=== PATIENT | female | born 1935 | race African-American/Black ===

== ENCOUNTER 2017-03-27 19:20 | Emergency (ER) | payer MEDICAID, OTHER ==
[~2017-03-27] VITALS: Ht 160 cm; Wt 85.0 kg
[2017-03-27 21:14] LABS: BASOPHILS % 0.6 % (0.0-2.0); EOSINOPHILS % 2.6 % (0.0-5.0); HEMATOCRIT. 39.2 % (36.0-48.0); HEMOGLOBIN. 12.7 g/dL (12.0-16.0); LYMPHOCYTES % 13.5 % (20.0-50.0); MEAN CORPUSCULAR HEMOGLOBIN 30.7 pg (28.0-32.0); MEAN CORPUSCULAR VOLUME 95.2 fL (81.0-99.0); MEAN PLATELET VOLUME 8.9 fl (7.4-10.4); MONOCYTES % 8.1 % (2.0-8.0); NEUTROPHILS % 75.2 % (40.0-76.0); PLATELET 162 x1000/uL (130-400); RED BLOOD CELL COUNT 4.12 mill/uL (4.2-5.4); RED CELL DISTRIBUTION WIDTH 15.1 % (11.6-14.6)
[2017-03-27 21:16] LABS: INR 1.1; PROTHROMBIN TIME 11.4 sec
[2017-03-27 21:22] LABS: CARBON DIOXIDE 33 mEq/L (21-32); CHLORIDE 98 mEq/L (98-107)
[2017-03-27 21:23] LABS: TROPONIN I < 0.02 ng/mL (0.00-0.04)
[2017-03-27] MEDS ORDERED: METHYLPREDNISOLONE SOD SUCC 125 MG/2 ML VIAL IV ONE (23:00)
[2017-03-28 00:01] VITALS: BP 166/89
== END 2017-03-28 05:54 | disposition home or self-care (01) ==
LOC: ER 20:44
DX: R05 Cough (principal); I50.9 Heart failure, unspecified; J44.9 Chronic obstructive pulmonary disease, unspecified; E11.9 Type 2 diabetes mellitus without complications; Z88.0 Allergy status to penicillin; Z91.010 Allergy to peanuts; Z86.73 Personal history of transient ischemic attack (TIA), and cerebral infarction without residual deficits; Z90.49 Acquired absence of other specified parts of digestive tract; Z90.710 Acquired absence of both cervix and uterus; F17.211 Nicotine dependence, cigarettes, in remission; I10 Essential (primary) hypertension
CPT/HCPCS: 36415; 71010; 80053; 83880; 84484; 85025; 85610; 93005; 96374; 99285; J2930

== ENCOUNTER 2017-04-12 18:22 | Inpatient (IN) | payer OTHER ==
[~2017-04-12] VITALS: Ht 160 cm; Wt 84.1 kg
[~2017-04-12 18:22] MED LIST: IOHEXOL-350 100 ML BOTTLE ONE; SODIUM CHLORIDE 0.9% 10ML VIAL ONE
[2017-04-12] MEDS ORDERED: ALBUTEROL (0.083%) 2.5MG/3ML NEB HHN STA (18:57)
[2017-04-12] MEDS ORDERED: IPRATROPIUM BROMIDE (0.02%) 0.5MG/2.5ML NEB HHN STA (18:57)
[2017-04-12] MEDS ORDERED: METHYLPREDNISOLONE SOD SUCC 125 MG/2 ML VIAL IV STA (18:57)
[2017-04-12 19:29] LABS: BASOPHILS % 0.3 % (0.0-2.0); EOSINOPHILS % 1.5 % (0.0-5.0); HEMATOCRIT. 39.7 % (36.0-48.0); HEMOGLOBIN. 13.1 g/dL (12.0-16.0); LYMPHOCYTES % 7.4 % (20.0-50.0); MEAN CORPUSCULAR VOLUME 94.2 fL (81.0-99.0); MEAN PLATELET VOLUME 8.9 fl (7.4-10.4); MONOCYTES % 5.5 % (2.0-8.0); NEUTROPHILS % 85.3 % (40.0-76.0); PLATELET 166 x1000/uL (130-400); RED BLOOD CELL COUNT 4.21 mill/uL (4.2-5.4); RED CELL DISTRIBUTION WIDTH 14.9 % (11.6-14.6)
[2017-04-12 19:34] LABS: CHLORIDE 97 mEq/L (98-107)
[2017-04-12 19:36] LABS: PROTHROMBIN TIME 10.7 sec
[2017-04-12 19:39] LABS: CARBON DIOXIDE 36 mEq/L (21-32)
[2017-04-12 19:44] LABS: TROPONIN I < 0.02 ng/mL (0.00-0.04)
[2017-04-12 19:55] LABS: BG BASE EXCESS 2.6 mmol/L (-2.0-2.0); BG CARBOXYHEMOGLOBIN 0.8 % (0.5-1.5); BG DEOXYHEMOGLOBIN 3.2 % (0.0-5.0); BG FRACTION INSPIRED OXYGEN 28; BG METHEMOGLOBIN 0.5 % (0.0-1.5); BG OXYGEN SATURATION 96.8 % (92.0-98.5); BG OXYHEMOGLOBIN 95.5 % (94.0-97.0); BG PH 7.372 (7.350-7.450); BG PO2 90.3 mmHg (75.0-100.0); BG SAMPLE SITE RIGHT RADIAL; BG VENT MODE NASAL CANNULA
[2017-04-12 23:49] VITALS: BP 153/74
[2017-04-13] VITALS (15 sets, daily range): BP systolic 110–151; BP diastolic 37–81
[2017-04-13] MEDS ORDERED: CLONIDINE 0.1MG TABLET PO PRN
[2017-04-13] MEDS ORDERED: DOCUSATE SODIUM 100MG CAPSULE PO PRN
[2017-04-13] MEDS ORDERED: HYDROCODONE/ACETAMINOPHEN 5/325MG TABLET PO PRN
[2017-04-13] MEDS ORDERED: ONDANSETRON HCL 4MG/2ML VIAL IV PRN
[2017-04-13] MEDS ORDERED: SODIUM POLYSTYRENE SULFONATE 15 G/60 ML BOT PO NR (01:30)
[2017-04-13] MEDS ORDERED: FURO20TA4 PO (01:56)
[2017-04-13] MEDS ORDERED: CARV3.1242 PO (01:56)
[2017-04-13] MEDS ORDERED: ALBU2SYR PO (01:56)
[2017-04-13] MEDS ORDERED: LEVEMIR SQ (01:56)
[2017-04-13] MEDS ORDERED: HUMALOG SUBCUT (01:59)
[2017-04-13] MEDS ORDERED: LEVOFLOXACIN 500MG PREMIX 100 ML IV NR (03:00)
[2017-04-13] MEDS ORDERED: LEVOFLOXACIN 750MG PREMIX 150 ML IV NR (03:00)
[2017-04-13] MEDS: IPRATROPIUM/ALBUTEROL 0.5-3(2.5)MG/3ML NEB INH SCH ×5 (04:42→21:04)
[2017-04-13] MEDS ORDERED: DEXTROSE 50% WATER 50ML SYRINGE IV PRN (06:00)
[2017-04-13 06:43] LABS: CARBON DIOXIDE 34 mEq/L (21-32); CHLORIDE 96 mEq/L (98-107); HDL CHOLESTEROL 66 mg/dL (40-59); LDL CHOLESTEROL 142 mg/dL (5-100); T4 FREE 1.04 ng/dL (0.76-1.46)
[2017-04-13] MEDS: METHYLPREDNISOLONE SOD SUCC 40 MG/ML VIAL IV SCH ×3 (06:46→21:01)
[2017-04-13] MEDS: BLOOD SUGAR DIAGNOSTIC STRIP TEST SCH ×4 (06:58→20:53)
[2017-04-13] MEDS ORDERED: INSULIN LISPRO 100 UNITS/ML SUBCUT SCH (07:20)
[2017-04-13] MEDS ORDERED: INSULIN LISPRO 100 UNITS/ML SUBCUT NR (07:46)
[2017-04-13] MEDS: INSULIN LISPRO 100 UNITS/ML SUBCUT SCH ×4 (07:47→21:04)
[2017-04-13] MEDS: ASPIRIN 81MG EC TABLET PO SCH (08:55)
[2017-04-13] MEDS ORDERED: ENOXAPARIN 40MG/0.4ML SYR SUBCUT SCH (09:00)
[2017-04-13] MEDS: INSULIN DETEMIR UD 100 UNITS/ML SYR SUBCUT SCH (10:37)
[2017-04-14] VITALS (12 sets, daily range): BP systolic 136–178; BP diastolic 75–92
[2017-04-14] MEDS ORDERED: LEVOFLOXACIN 250MG PREMIX 50 ML IV SCH (03:00)
[2017-04-14] MEDS: METHYLPREDNISOLONE SOD SUCC 40 MG/ML VIAL IV SCH ×2 (06:13→18:20)
[2017-04-14] MEDS: BLOOD SUGAR DIAGNOSTIC STRIP TEST SCH ×3 (06:14→17:50)
[2017-04-14] MEDS: INSULIN LISPRO 100 UNITS/ML SUBCUT SCH ×3 (07:51→18:29)
[2017-04-14] MEDS: IPRATROPIUM/ALBUTEROL 0.5-3(2.5)MG/3ML NEB INH SCH ×4 (08:03→20:16)
[2017-04-14] MEDS: ASPIRIN 81MG EC TABLET PO SCH (08:35)
[2017-04-14] MEDS ORDERED: ENOXAPARIN 30MG/0.3ML SYR SUBCUT SCH (09:00)
[2017-04-14] MEDS: INSULIN DETEMIR UD 100 UNITS/ML SYR SUBCUT SCH (12:45)
[2017-04-14] MEDS ORDERED: P50 PO (19:28)
== END 2017-04-14 20:31 | disposition hospice, home (50) | DRG 189 ==
LOC: ER 18:58 → 3WST 20:18 → ENRESERV 22:53
PROVIDERS: ADMIT Internal Medicine; ATTEND Internal Medicine
DX: J96.01 Acute respiratory failure with hypoxia (principal); C34.90 Malignant neoplasm of unspecified part of unspecified bronchus or lung; J44.1 Chronic obstructive pulmonary disease with (acute) exacerbation; I50.9 Heart failure, unspecified; I11.0 Hypertensive heart disease with heart failure; F17.200 Nicotine dependence, unspecified, uncomplicated; E87.5 Hyperkalemia; E11.9 Type 2 diabetes mellitus without complications; Z66 Do not resuscitate; Z51.5 Encounter for palliative care; Z92.3 Personal history of irradiation; Z79.4 Long term (current) use of insulin; Z88.0 Allergy status to penicillin; Z90.710 Acquired absence of both cervix and uterus; Z86.73 Personal history of transient ischemic attack (TIA), and cerebral infarction without residual deficits; Z91.010 Allergy to peanuts; Z99.81 Dependence on supplemental oxygen; Z90.49 Acquired absence of other specified parts of digestive tract
CPT/HCPCS: 36415; 36600; 71010; 71275; 80053; 80061; 82375; 82378; 82805; 82962; 83605; 83880; 84439; 84443; 84484; 85025; 85610; 87040; 92610; 93005; 94640; 94644; 94664; 96374; 99291; A4216; J1650; J1815; J1956; J2920; J2930; J7050; J7611; J7620; Q9967